=== PATIENT | male | born 2000 | race Hispanic/Latino ===

== ENCOUNTER 2023-03-27 08:19 | Emergency (ER) | payer SELFPAY ==
[2023-03-27] VITALS (7 sets, daily range): BP systolic 112–132; BP diastolic 74–110
[~2023-03-27] VITALS: Ht 154.9 cm; Wt 70.0 kg
[2023-03-27] MEDS ORDERED: OMNI-PAC300 MG PO (09:48)
== END 2023-03-27 09:57 | disposition home or self-care (01) | DRG 605 ==
LOC: ED 08:19
DX: S00.81XA Abrasion of other part of head, initial encounter (principal); V59.50XA Passenger in pick-up truck or van injured in collision with unspecified motor vehicles in traffic accident, initial encounter